=== PATIENT | male | born 1960 ===

== ENCOUNTER → 2017-06-08 | Outpatient (CLI) | payer OTHER | END | disposition home or self-care (01) | LOC: LAB 09:30 | DX: D69.49 Other primary thrombocytopenia (principal); D51.3 Other dietary vitamin B12 deficiency anemia; D50.8 Other iron deficiency anemias; D51.8 Other vitamin B12 deficiency anemias; I10 Essential (primary) hypertension; B20 Human immunodeficiency virus [HIV] disease; B18.8 Other chronic viral hepatitis ==

== ENCOUNTER 2017-07-27 10:37 | Outpatient (CLI) | payer OTHER | END 2017-07-27 10:45 | disposition home or self-care (01) | LOC: LAB 10:37 | DX: D69.49 Other primary thrombocytopenia (principal); D51.3 Other dietary vitamin B12 deficiency anemia; D50.8 Other iron deficiency anemias; D51.8 Other vitamin B12 deficiency anemias; I10 Essential (primary) hypertension ==

== ENCOUNTER 2017-10-01 14:39 | Outpatient (CLI) | payer OTHER | END 2017-10-01 14:48 | disposition home or self-care (01) | LOC: LAB 14:39 | DX: D69.3 Immune thrombocytopenic purpura (principal) ==

== ENCOUNTER 2017-12-07 08:20 | Outpatient (CLI) | payer OTHER | END 2017-12-07 08:25 | disposition home or self-care (01) | LOC: TOM 08:20 | DX: R91.1 Solitary pulmonary nodule (principal) | CPT/HCPCS: 71260; Q9965 ==